=== PATIENT | male | born 1995 | race Caucasian/White ===

== ENCOUNTER 2017-11-04 11:10 | Emergency (ER) | payer OTHER ==
[~2017-11-04] VITALS: Ht 182.9 cm; Wt 106.6 kg
[~2017-11-04 11:10] MED LIST: ACET325; ACYC800 PO; CEPH500 PO; CODACE30 PO; CODACEE120 PO; HYDACE5 PO; HYDACE5325 PO; IBUP800 PO; Norco 5-325 Ta1 EACH PO; OXYACE5T PO; TRAM50 PO; Ultram50 MG PO; Veetids 500500 MG PO
[2017-11-04] MEDS ORDERED: Crutch1 EACH MISC (13:05)
[2018-07-13] MEDS ORDERED: IBUP800 PO (12:44)
[2018-07-13] MEDS ORDERED: [UNRECOGNIZED DRUG - SUPPLY] TOP (12:44)
== END 2017-11-04 13:32 | disposition home or self-care (01) ==
LOC: ER 11:10
DX: S92.212A Displaced fracture of cuboid bone of left foot, initial encounter for closed fracture (principal); F17.200 Nicotine dependence, unspecified, uncomplicated; W22.8XXA Striking against or struck by other objects, initial encounter
CPT/HCPCS: 29515; 73630; 99283

== ENCOUNTER 2017-12-14 23:57 | Emergency (ER) | payer OTHER ==
[~2017-12-14] VITALS: Ht 185.4 cm; Wt 111.1 kg
[~2017-12-14 23:57] MED LIST changes: +Crutch1 EACH MISC
[2018-07-13] MEDS ORDERED: IBUP800 PO (12:44)
[2018-07-13] MEDS ORDERED: [UNRECOGNIZED DRUG - SUPPLY] TOP (12:44)
== END 2017-12-15 02:51 | disposition home or self-care (01) ==
LOC: ER 23:57
DX: S61.302A Unspecified open wound of right middle finger with damage to nail, initial encounter (principal); F17.200 Nicotine dependence, unspecified, uncomplicated; W23.0XXA Caught, crushed, jammed, or pinched between moving objects, initial encounter
CPT/HCPCS: 73130; 96374; 99283; J0690

== ENCOUNTER 2019-08-04 19:53 | Emergency (ER) | payer OTHER ==
[~2019-08-04] VITALS: Ht 182.9 cm; Wt 106.6 kg
[~2019-08-04 19:53] MED LIST changes: +[UNRECOGNIZED DRUG - SUPPLY] TOP
[2019-08-04] MEDS ORDERED: Colace100 MG PO (20:28)
[2019-08-04] MEDS ORDERED: HYDCOR2.5C PR (20:28)
== END 2019-08-04 21:03 | disposition home or self-care (01) ==
LOC: ER 19:53
DX: K64.4 Residual hemorrhoidal skin tags (principal); F17.200 Nicotine dependence, unspecified, uncomplicated
CPT/HCPCS: 99282

== ENCOUNTER 2019-08-07 09:04 | Emergency (ER) | payer OTHER ==
[~2019-08-07] VITALS: Ht 190.5 cm; Wt 104.8 kg
[~2019-08-07 09:04] MED LIST changes: -HYDR1TAB94 PO
[2019-08-07 10:35] LABS: BASOPHILS ABSOLUTE AUTO 0.05 K/mm3 (0.00-0.23); BASOPHILS PERCENT AUTO 1 % (0-2); EOSINOPHILS ABSOLUTE AUTO 0.03 K/mm3 (0.00-0.68); EOSINOPHILS PERCENT AUTO 0 % (0-6); Hematocrit 38.5 % (37.0-53.0); Hemoglobin 13.5 g/dL (13.5-17.5); IMMATURE GRAN ABSOLUTE AUTO 0.03 K/mm3 (0.00-0.10); IMMATURE GRAN PERCENT AUTO 0 % (0-1); LYMPHOCYTES ABSOLUTE AUTO 3.85 K/mm3 (0.84-5.20); LYMPHOCYTES PERCENT AUTO 38 % (21-46); MONOCYTES ABSOLUTE AUTO 0.88 K/mm3 (0.16-1.47); MONOCYTES PERCENT AUTO 9 % (4-13); Mean Corpuscular HGB 32.5 pg (26.0-34.0); Mean Corpuscular HGB Conc 35.1 g/dL (31.5-36.5); Mean Corpuscular Volume 93 fL (80-100); NEUTROPHILS ABSOLUTE AUTO 5.18 K/mm3 (1.96-9.15); NEUTROPHILS PERCENT AUTO 52 % (41-73); Platelet Count 193 K/mm3 (150-400); RDW Standard Deviation 44.1 fL (35.1-46.3); Red Blood Cell Count 4.16 M/mm3 (4.30-5.90); White Blood Cell Count 10.02 K/mm3 (4.00-11.30)
[2019-08-07 10:47] LABS: Anion Gap 3 mmol/L (6-16); Blood Urea Nitrogen 12 mg/dL (8-24); Bun/Creatinine Ratio 14.9 (12.0-20.0); CO2, Blood 28 mmol/L (21-32); Calcium, Blood 9.5 mg/dL (8.5-10.1); Chloride, Blood 104 mmol/L (98-108); Creatinine, Blood 0.81 mg/dL (0.60-1.20); Glomerular Filtration Rate >60 (60-); Glucose, Blood 107 mg/dL (70-99); Potassium, Blood 3.9 mmol/L (3.5-5.5); Sodium, Blood 135 mmol/L (136-145)
[2019-08-07] MEDS ORDERED: HYDR1TAB94 PO (11:15)
== END 2019-08-07 11:31 | disposition home or self-care (01) ==
LOC: ER 09:04
PROVIDERS: Emergency Medicine
DX: K61.0 Anal abscess (principal); F17.200 Nicotine dependence, unspecified, uncomplicated
CPT/HCPCS: 36415; 72193; 80048; 85025; 90471; 90714; 99284-25; Q9967

== ENCOUNTER → 2019-08-07 | Outpatient (CLI) | payer OTHER ==
[~2019-08-07] MED LIST changes: +Colace100 MG PO; +HYDCOR2.5C PR; +HYDR1TAB94 PO
== END ==
LOC: LAB EV 08:49 → LAB SHORT 08:49
DX: K61.1 Rectal abscess (principal)
CPT/HCPCS: 87070; 87075; 87147; 87205

== ENCOUNTER → 2021-12-17 | Outpatient (CLI) | payer OTHER ==
[~2021-12-17] MED LIST changes: +HYDR1TAB94 PO
== END ==
LOC: LAB SHORT 18:07
DX: R30.9 Painful micturition, unspecified (principal)
CPT/HCPCS: 87086

== ENCOUNTER → 2021-12-22 | Outpatient (CLI) | payer OTHER ==
[2021-12-24 08:10] LABS: HBSAG SCREEN Negative (Negative); HIV AB/P24 AG SCREEN Non Reactive (Non Reactive)
== END ==
LOC: LAB 16:35 → LAB SHORT 16:35
PROVIDERS: Registered Nurse Community Health
DX: Z11.3 Encounter for screening for infections with a predominantly sexual mode of transmission (principal)
CPT/HCPCS: 86592; 86803; 87340; 87389

== ENCOUNTER → 2021-12-22 | Outpatient (CLI) | payer OTHER ==
[2021-12-24 21:06] LABS: CHLAMYDIA BY NAA Negative (Negative); GONOCOCCUS BY NAA Negative (Negative); TRICH VAG BY NAA Negative (Negative)
== END ==
LOC: LAB SHORT 16:35 → LAB 16:35
PROVIDERS: Registered Nurse Community Health
DX: Z11.3 Encounter for screening for infections with a predominantly sexual mode of transmission (principal); R30.9 Painful micturition, unspecified
CPT/HCPCS: 87086; 87491; 87591; 87661

== ENCOUNTER → 2022-01-02 | Outpatient (CLI) | payer OTHER | END | disposition home or self-care (01) | LOC: LAB SHORT 11:29 → LAB 11:29 | DX: R31.9 Hematuria, unspecified (principal) | CPT/HCPCS: 87077; 87086; 87186 ==

== ENCOUNTER → 2022-02-04 | Outpatient (CLI) | payer OTHER | END | disposition home or self-care (01) | LOC: LAB SHORT 17:03 → LAB 17:03 | DX: H11.9 Unspecified disorder of conjunctiva (principal) | CPT/HCPCS: 87491 ==

== ENCOUNTER → 2022-02-08 | Outpatient (CLI) | payer OTHER ==
[2022-02-08 13:06] LABS: Body Fluid Crystals NEG (NEGATIVE)
== END | disposition home or self-care (01) ==
LOC: LAB 11:35 → LAB SHORT 11:35
PROVIDERS: Family Medicine
DX: M25.461 Effusion, right knee (principal); M10.9 Gout, unspecified
CPT/HCPCS: 89060

== ENCOUNTER → 2022-04-10 | Outpatient (CLI) | payer OTHER ==
[2022-04-10 13:56] LABS: BASOPHILS ABSOLUTE AUTO 0.05 K/mm3 (0.00-0.23); BASOPHILS PERCENT AUTO 1 % (0-2); EOSINOPHILS ABSOLUTE AUTO 0.03 K/mm3 (0.00-0.68); EOSINOPHILS PERCENT AUTO 0 % (0-6); Hematocrit 41.7 % (37.0-53.0); Hemoglobin 13.7 g/dL (13.5-17.5); IMMATURE GRAN ABSOLUTE AUTO 0.08 K/mm3 (0.00-0.10); IMMATURE GRAN PERCENT AUTO 1 % (0-1); LYMPHOCYTES ABSOLUTE AUTO 1.03 K/mm3 (0.84-5.20); LYMPHOCYTES PERCENT AUTO 11 % (21-46); MONOCYTES ABSOLUTE AUTO 0.83 K/mm3 (0.16-1.47); MONOCYTES PERCENT AUTO 9 % (4-13); Mean Corpuscular HGB Conc 32.9 g/dL (31.5-36.5); Mean Corpuscular Volume 88 fL (80-100); Mean Platelet Volume 9.8 fL (9.1-12.4); NEUTROPHILS ABSOLUTE AUTO 7.59 K/mm3 (1.96-9.15); NEUTROPHILS PERCENT AUTO 79 % (41-73); Platelet Count 294 K/mm3 (150-400); RDW Standard Deviation 45.1 fL (35.1-46.3); Red Blood Cell Count 4.73 M/mm3 (4.30-5.90); White Blood Cell Count 9.61 K/mm3 (4.00-11.30)
[2022-04-10 14:05] LABS: Albumin, Blood 3.6 g/dL (3.4-5.0); Bilirubin, Total 0.6 mg/dL (0.1-1.0); Calcium, Blood 9.5 mg/dL (8.5-10.1); Creatinine, Blood 0.57 mg/dL (0.60-1.20); Globulin, Blood 3.6 g/dL (2.2-4.0); Total Protein, Blood 7.2 g/dL (6.4-8.2)
[2022-04-10 19:54] LABS: Adenovirus F 40/41 Not Detected (NOT DETECT); Astrovirus Not Detected (NOT DETECT); Campylobacter Sp Not Detected (NOT DETECT); Cryptosporidium Not Detected (NOT DETECT); Cyclospora Cayetanensis Not Detected (NOT DETECT); E. Coli O157 Not Detected (NOT DETECT); Entamoeba Histolytica Not Detected (NOT DETECT); Enteroaggregative E. coli-EAEC Not Detected (NOT DETECT); Enteropathogenic E. coli-EPEC Not Detected (NOT DETECT); Enterotoxigenic E. coli-ETEC Not Detected (NOT DETECT); Giardia Lamblia Not Detected (NOT DETECT); Norovirus GI/GII Not Detected (NOT DETECT); Plesiomonas Shigelloides Detected (NOT DETECT); Rotavirus A Not Detected (NOT DETECT); Salmonella Sp Not Detected (NOT DETECT); Sapovirus Not Detected (NOT DETECT); Shiga Toxin-prod E. coli-STEC Not Detected (NOT DETECT); Shigella/Enteroin E. coli-EIEC Not Detected (NOT DETECT); Vibrio Cholerae Not Detected (NOT DETECT); Vibrio Sp Not Detected (NOT DETECT); Yersinia Enterocolitica Not Detected (NOT DETECT)
[2022-04-12 09:11] LABS: HBSAG SCREEN Negative (Negative); HCV AB 0.2 (0.0-0.9); HEP B CORE AB, TOT Negative (Negative)
== END | disposition home or self-care (01) ==
LOC: LAB SHORT 13:38 → LAB 13:38
PROVIDERS: General Practice
DX: R19.7 Diarrhea, unspecified (principal)
CPT/HCPCS: 80053; 85025; 85651; 86140; 86704; 86708; 86803; 87340; 87507

== ENCOUNTER → 2022-04-29 | Outpatient (CLI) | payer OTHER ==
[2022-04-29 10:55] LABS: Adenovirus F 40/41 Not Detected (NOT DETECT); Astrovirus Not Detected (NOT DETECT); Campylobacter Sp Not Detected (NOT DETECT); Cryptosporidium Not Detected (NOT DETECT); Cyclospora Cayetanensis Not Detected (NOT DETECT); E. Coli O157 Not Detected (NOT DETECT); Entamoeba Histolytica Not Detected (NOT DETECT); Enteroaggregative E. coli-EAEC Not Detected (NOT DETECT); Enteropathogenic E. coli-EPEC Not Detected (NOT DETECT); Enterotoxigenic E. coli-ETEC Not Detected (NOT DETECT); Giardia Lamblia Not Detected (NOT DETECT); Norovirus GI/GII Not Detected (NOT DETECT); Plesiomonas Shigelloides Not Detected (NOT DETECT); Rotavirus A Not Detected (NOT DETECT); Salmonella Sp Not Detected (NOT DETECT); Sapovirus Not Detected (NOT DETECT); Shiga Toxin-prod E. coli-STEC Not Detected (NOT DETECT); Shigella/Enteroin E. coli-EIEC Not Detected (NOT DETECT); Vibrio Cholerae Not Detected (NOT DETECT); Vibrio Sp Not Detected (NOT DETECT); Yersinia Enterocolitica Not Detected (NOT DETECT)
== END | disposition home or self-care (01) ==
LOC: LAB SHORT 03:54 → LAB 03:54
PROVIDERS: Physician Assistant
DX: R19.7 Diarrhea, unspecified (principal)
CPT/HCPCS: 87507

== ENCOUNTER 2022-05-06 09:43 | Day surgery (SDC) | payer OTHER ==
[~2022-05-06] VITALS: Ht 185.4 cm; Wt 104.1 kg
[2022-05-06] MEDS ORDERED: BUDESONIDE EC3 M1 (10:40)
[2022-05-06] MEDS ORDERED: SULF500 (10:40)
[2022-05-06] MEDS ORDERED: SULI150 (10:41)
[2022-05-06] MEDS ORDERED: ZINC15 (10:41)
[2022-05-06] MEDS ORDERED: C COMPLEX1000 M1 (10:41)
--- NOTE | 2022-05-06 12:05 | NUR ---
05/06/22 1205 KAMRON ESTES PT GIVEN PROPOFOL SEDATION PER PROTOCOL AND MD INSTRUCTION BUT FAILD TO SEDATE PT./UNSUCCESSFUL RECTAL EXAM DUE TO PT TRYING TO SIT UP AND RESIST. BP DROPPED 92/38 MAP 53- MD ORDERED EPHEDRINE 12.5MG. INCREASED BP 90/49 (62) / VERSED 1MG GIVEN IV 1133 IN ATTEMPT TO PROCEED WITH PROCEDURE. BP 93/45 MD ORDERED SECOND EPHEDRINE 12.5 MG IV; BP 96/47 (61) MAP. ANETHESIOLOGIST CALLED 1130 WILL BE HERE IN 20 MINUTES.
--- NOTE | 2022-05-06 12:15 | NUR ---
05/06/[address] CALLED IN TO SEDATE PT ORIGINALLY SCHEDULED FOR NURSE SEDATION W/O SUCCESS
== END 2022-05-06 13:30 | disposition home or self-care (01) ==
LOC: ORSCSDS 09:43
PROVIDERS: Internal Medicine Gastroenterology
PROC: 0DBN8ZX Excision of Sigmoid Colon, Via Natural or Artificial Opening Endoscopic, Diagnostic (ICD-10-PCS; principal; 2022-05-06 11:00)
PROC: 0DBF8ZX Excision of Right Large Intestine, Via Natural or Artificial Opening Endoscopic, Diagnostic (ICD-10-PCS; principal; 2022-05-06 11:00)
PROC: 0DBB8ZX Excision of Ileum, Via Natural or Artificial Opening Endoscopic, Diagnostic (ICD-10-PCS; principal; 2022-05-06 11:00)
PROC: 0DBL8ZX Excision of Transverse Colon, Via Natural or Artificial Opening Endoscopic, Diagnostic (ICD-10-PCS; principal; 2022-05-06 11:00)
PROC: 0DBP8ZX Excision of Rectum, Via Natural or Artificial Opening Endoscopic, Diagnostic (ICD-10-PCS; principal; 2022-05-06 11:00)
PROC: 0DBM8ZX Excision of Descending Colon, Via Natural or Artificial Opening Endoscopic, Diagnostic (ICD-10-PCS; principal; 2022-05-06 11:00)
DX: K62.5 Hemorrhage of anus and rectum (principal); R19.7 Diarrhea, unspecified; K57.30 Diverticulosis of large intestine without perforation or abscess without bleeding; K63.89 Other specified diseases of intestine; M02.30 Reiter's disease, unspecified site; K21.9 Gastro-esophageal reflux disease without esophagitis; E66.9 Obesity, unspecified; Z68.31 Body mass index [BMI] 31.0-31.9, adult; Z79.899 Other long term (current) drug therapy
CPT/HCPCS: 88305; J0330; J0461; J2250; J2370; J2405; J2704; J7120

== ENCOUNTER 2022-09-22 00:45 | Day surgery (SDC) | payer OTHER ==
[~2022-09-22] VITALS: Wt 107.0 kg
[~2022-09-22 00:45] MED LIST changes: +BUDESONIDE EC3 M1; +C COMPLEX1000 M1; +GALZIN25 MG PO; +SULF500; +SULI150
[2022-09-22] MEDS ORDERED: MESA250ER PO (14:02)
[2022-09-22] MEDS ORDERED: DERMACINRX FOL1 EAC2 PO (14:03)
[2022-09-22] MEDS ORDERED: IBUP400 PO (14:03)
[2022-09-22] MEDS ORDERED: Acetaminophen650 M1 PO (14:04)
== END 2022-09-22 16:32 | disposition home or self-care (01) ==
LOC: ATC 00:45
DX: M45.0 Ankylosing spondylitis of multiple sites in spine (principal); K51.90 Ulcerative colitis, unspecified, without complications
CPT/HCPCS: 96413; 96415; J7050; Q5103

== ENCOUNTER 2022-10-06 03:35 | Day surgery (SDC) | payer OTHER ==
[~2022-10-06] VITALS: Wt 106.8 kg
[~2022-10-06 03:35] MED LIST changes: +Acetaminophen650 M1 PO; +DERMACINRX FOL1 EAC2 PO; +IBUP400 PO; +MESA250ER PO
== END 2022-10-06 16:28 | disposition home or self-care (01) ==
LOC: ATC 03:35
DX: M45.9 Ankylosing spondylitis of unspecified sites in spine (principal); K51.90 Ulcerative colitis, unspecified, without complications
CPT/HCPCS: 96413; 96415; J7050; Q5103

== ENCOUNTER 2022-11-03 01:19 | Day surgery (SDC) | payer OTHER ==
[~2022-11-03] VITALS: Wt 107.5 kg
== END 2022-11-03 16:45 | disposition home or self-care (01) ==
LOC: ATC 01:19
DX: M45.0 Ankylosing spondylitis of multiple sites in spine (principal)
CPT/HCPCS: 96413; 96415; J7050; Q5103

== ENCOUNTER → 2022-12-24 | Outpatient (CLI) | payer OTHER ==
[2022-12-24 16:04] LABS: Source, Urine Clean Catch
[2022-12-24 16:36] LABS: Red Blood Cells, Urine 0-2 /hpf (0-2); White Blood Cells, Urine 25-50 /hpf (0-5)
[2022-12-24 16:38] LABS: Amorphous Heavy (0-Heavy); Squamous Epithelial Cells Rare /hpf (Few)
[2022-12-24 16:49] LABS: Mucus Mod (0-Heavy); Transitional Epithelial Cells Rare /hpf (0-Rare)
[2022-12-24 16:50] LABS: Hyaline Casts 0-2 /lpf (0-2)
== END | disposition home or self-care (01) ==
LOC: LAB SHORT 16:02 → LAB 16:02
PROVIDERS: Physician Assistant
DX: R31.9 Hematuria, unspecified (principal)
CPT/HCPCS: 81015; 87086

== ENCOUNTER → 2023-04-24 | Outpatient (CLI) | payer OTHER ==
[2023-04-24 13:52] LABS: Source, Urine Voided
[2023-04-24 15:42] LABS: Appearance, Urine Clear (Clear); Bilirubin, Urine Neg (Neg); Blood, Urine 2+ (Neg); Color, Urine Yellow (P-Yellow); Glucose Qualitative, Urine Neg (Neg); Ketones, Urine Neg (Neg); Leukocyte Esterase, Urine Neg (Neg); Nitrite, Urine Neg (Neg); Protein, Urine Neg (Neg); Specific Gravity, Urine 1.015 (1.003-1.022); Urobilinogen, Urine NORM (Normal)
[2023-04-24 15:56] LABS: Bacteria Mod /hpf; Red Blood Cells, Urine 0-2 /hpf (0-2); Squamous Epithelial Cells Rare /hpf (Few); White Blood Cells, Urine 0-2 /hpf (0-5)
== END | disposition home or self-care (01) ==
LOC: LAB SHORT 13:51 → LAB 13:51 → LAB FUT 03-22 07:55 → EDSTATUS 03-22 07:55
PROVIDERS: Internal Medicine Rheumatology
DX: M45.0 Ankylosing spondylitis of multiple sites in spine (principal)
CPT/HCPCS: 81001; 87086

== ENCOUNTER 2023-12-19 01:57 | Day surgery (SDC) | payer OTHER ==
[2023-12-19 14:04] VITALS: BP 121/79
[2023-12-19] MEDS ORDERED: NS IV SCH (14:20)
[2023-12-19] MEDS ORDERED: INFLIXIMAB DYYB IV SCH (14:20)
== END 2023-12-19 17:13 | disposition home or self-care (01) ==
LOC: ATC 01:57
DX: M45.0 Ankylosing spondylitis of multiple sites in spine (principal); H10.9 Unspecified conjunctivitis
CPT/HCPCS: 96413; 96415; J7040; Q5103

== ENCOUNTER → 2024-03-11 | Outpatient (CLI) | payer OTHER | END | disposition home or self-care (01) | LOC: LAB 15:30 → LAB SHORT 15:30 → EDSTATUS 03-13 09:49 | DX: K51.00 Ulcerative (chronic) pancolitis without complications (principal); M13.80 Other specified arthritis, unspecified site ==

== ENCOUNTER 2024-05-13 02:26 | Day surgery (SDC) | payer OTHER ==
[2024-05-13 13:50] VITALS: BP 118/83
[2024-05-13] MEDS ORDERED: Infliximab-DYYB 1,000 MG in NS 250 ML IV SCH (13:50)
[2024-05-13] MEDS ORDERED: INFLECTRA100 MG IV (13:53)
== END 2024-05-13 16:26 | disposition home or self-care (01) ==
LOC: ATC 02:26
DX: Z51.11 Encounter for antineoplastic chemotherapy (principal); M45.0 Ankylosing spondylitis of multiple sites in spine; K51.90 Ulcerative colitis, unspecified, without complications; H10.9 Unspecified conjunctivitis
CPT/HCPCS: 96413; 96415; J7050; Q5103

== ENCOUNTER 2024-07-02 01:57 | Day surgery (SDC) | payer OTHER ==
[~2024-07-02 01:57] MED LIST changes: +INFLECTRA100 MG IV
[2024-07-02 15:28] VITALS: BP 133/87
[2024-07-02] MEDS ORDERED: NS IV SCH ×2 (15:40→15:45)
[2024-07-02] MEDS ORDERED: INFLIXIMAB DYYB IV SCH ×2 (15:40→15:45)
[2024-07-02 17:26] LABS: BASOPHILS ABSOLUTE AUTO 0.06 K/mm3 (0.00-0.23); BASOPHILS PERCENT AUTO 1 % (0-2); EOSINOPHILS ABSOLUTE AUTO 0.06 K/mm3 (0.00-0.68); EOSINOPHILS PERCENT AUTO 1 % (0-6); Hematocrit 40.1 % (37.0-53.0); Hemoglobin 14.5 g/dL (13.5-17.5); IMMATURE GRAN ABSOLUTE AUTO 0.01 K/mm3 (0.00-0.10); IMMATURE GRAN PERCENT AUTO 0 % (0-1); LYMPHOCYTES ABSOLUTE AUTO 2.77 K/mm3 (0.84-5.20); LYMPHOCYTES PERCENT AUTO 33 % (21-46); MONOCYTES ABSOLUTE AUTO 0.74 K/mm3 (0.16-1.47); MONOCYTES PERCENT AUTO 9 % (4-13); Mean Corpuscular HGB 31.7 pg (26.0-34.0); Mean Corpuscular HGB Conc 36.2 g/dL (31.5-36.5); Mean Corpuscular Volume 88 fL (80-100); Mean Platelet Volume 10.9 fL (9.1-12.4); NEUTROPHILS ABSOLUTE AUTO 4.87 K/mm3 (1.96-9.15); NEUTROPHILS PERCENT AUTO 57 % (41-73); Platelet Count 238 K/mm3 (150-400); RDW Coefficient Variation 12.3 % (11.7-14.2); RDW Standard Deviation 39.1 fL (35.1-46.3); Red Blood Cell Count 4.57 M/mm3 (4.30-5.90); White Blood Cell Count 8.51 K/mm3 (4.00-11.30)
[2024-07-02 17:35] LABS: C-REACTIVE PROTEIN, EXT RANGE <0.290 mg/dL (0.000-0.300)
[2024-07-02 17:38] LABS: Alanine Aminotransfer (ALT/SGP 70 U/L (12-78); Albumin, Blood 4.3 g/dL (3.4-5.0); Albumin/Globulin Ratio 1.2 (0.8-1.8); Alk Phos 79 U/L (50-136); Anion Gap 7 mmol/L (3-11); Aspartate Aminotrans (AST/SGOT 29 U/L (12-37); Bilirubin, Total 0.4 mg/dL (0.1-1.0); Blood Urea Nitrogen 15 mg/dL (8-24); Bun/Creatinine Ratio 18.6 (12.0-20.0); CO2, Blood 28 mmol/L (21-32); Calcium, Blood 9.5 mg/dL (8.5-10.1); Chloride, Blood 106 mmol/L (98-108); Creatinine, Blood 0.81 mg/dL (0.60-1.20); Globulin, Blood 3.7 g/dL (2.2-4.0); Glomerular Filtration Rate 122 (60-); Glucose, Blood 81 mg/dL (70-99); Potassium, Blood 3.7 mmol/L (3.5-5.5); Sodium, Blood 137 mmol/L (136-145)
== END 2024-07-02 18:35 | disposition home or self-care (01) ==
LOC: ATC 01:57
PROVIDERS: Internal Medicine
DX: M06.09 Rheumatoid arthritis without rheumatoid factor, multiple sites (principal); K51.80 Other ulcerative colitis without complications; E66.8 Other obesity; Z68.32 Body mass index [BMI] 32.0-32.9, adult; Z87.891 Personal history of nicotine dependence; Z79.899 Other long term (current) drug therapy
CPT/HCPCS: 80053; 85025; 86140; 96413; 96415; J7040; Q5103

== ENCOUNTER 2024-08-13 03:34 | Day surgery (SDC) | payer OTHER ==
[~2024-08-13] VITALS: Wt 111.1 kg
[2024-08-13 15:25] VITALS: BP 132/82
[2024-08-13] MEDS ORDERED: INFLIXIMAB DYYB IV SCH (15:35)
[2024-08-13] MEDS ORDERED: NS IV SCH (15:35)
== END 2024-08-13 18:24 | disposition home or self-care (01) ==
LOC: ATC 03:34
DX: M06.09 Rheumatoid arthritis without rheumatoid factor, multiple sites (principal); E66.9 Obesity, unspecified; Z68.32 Body mass index [BMI] 32.0-32.9, adult; Z87.891 Personal history of nicotine dependence
CPT/HCPCS: 96413; 96415; J7040; Q5103

== ENCOUNTER 2024-09-30 11:41 | Day surgery (SDC) | payer OTHER ==
[~2024-09-30] VITALS: Ht 188 cm; Wt 107.0 kg
[2024-09-30] MEDS ORDERED: CeFAZolin Sodium 2,000 MG VIAL ONE (12:13)
[2024-09-30] MEDS ORDERED: NS 500 ML IV ONE ×3 (12:17→14:26)
[2024-09-30] MEDS ORDERED: FentaNYL Citrate 50 MCG/ML 2 ML Injection ONE (13:43)
[2024-09-30] MEDS ORDERED: Midazolam HCl 1MG / ML 2ML Vial ONE (13:43)
[2024-09-30] MEDS ORDERED: propofoL 60 ML IV ONE (13:43)
[2024-09-30] MEDS ORDERED: HYDROmorphone HCl/Pf 1MG SYR ONE (14:02)
[2024-09-30] MEDS ORDERED: Dexamethasone Sod Phos 10 MG/ML 1ML VIAL ONE (14:03)
[2024-09-30] MEDS ORDERED: Ondansetron HCl 2 MG / ML 2ML Vial ONE ×2 (14:03→14:44)
[2024-09-30] MEDS ORDERED: Lidocaine HCl 2% 10 ML SDA INJ ONE ×2 (14:13)
[2024-09-30] MEDS ORDERED: Metoclopramide HCl 5MG / ML 2ML Vial ONE (15:00)
[2024-09-30 15:12] VITALS: BP 135/84
== END 2024-09-30 15:37 | disposition home or self-care (01) ==
LOC: ORSCSDS 11:41
PROVIDERS: Orthopaedic Surgery
PROC: 0PSM34Z Reposition Right Carpal with Internal Fixation Device, Percutaneous Approach (ICD-10-PCS; principal; 2024-09-30 13:15)
DX: S62.014A Nondisplaced fracture of distal pole of navicular [scaphoid] bone of right wrist, initial encounter for closed fracture (principal); V86.59XA Driver of other special all-terrain or other off-road motor vehicle injured in nontraffic accident, initial encounter; Z87.891 Personal history of nicotine dependence; Z79.899 Other long term (current) drug therapy; E66.9 Obesity, unspecified; Z68.30 Body mass index [BMI] 30.0-30.9, adult
CPT/HCPCS: C1713; C1769; J0690; J1100; J1171; J2003; J2250; J2405; J2704; J2765; J3010; J7040

== ENCOUNTER 2024-10-09 03:47 | Day surgery (SDC) | payer OTHER ==
[~2024-10-09] VITALS: Wt 109.4 kg
[2024-10-09 13:45] VITALS: BP 125/67
[2024-10-09] MEDS ORDERED: NS IV SCH (14:00)
[2024-10-09] MEDS ORDERED: INFLIXIMAB DYYB IV SCH (14:00)
[2024-10-09 14:31] LABS: BASOPHILS ABSOLUTE AUTO 0.05 K/mm3 (0.00-0.23); BASOPHILS PERCENT AUTO 1 % (0-2); EOSINOPHILS ABSOLUTE AUTO 0.06 K/mm3 (0.00-0.68); EOSINOPHILS PERCENT AUTO 1 % (0-6); Hematocrit 41.3 % (37.0-53.0); Hemoglobin 15.4 g/dL (13.5-17.5); IMMATURE GRAN ABSOLUTE AUTO 0.03 K/mm3 (0.00-0.10); IMMATURE GRAN PERCENT AUTO 0 % (0-1); LYMPHOCYTES ABSOLUTE AUTO 2.35 K/mm3 (0.84-5.20); LYMPHOCYTES PERCENT AUTO 32 % (21-46); MONOCYTES ABSOLUTE AUTO 0.68 K/mm3 (0.16-1.47); MONOCYTES PERCENT AUTO 9 % (4-13); Mean Corpuscular HGB 32.2 pg (26.0-34.0); Mean Corpuscular HGB Conc 37.3 g/dL (31.5-36.5); Mean Corpuscular Volume 86 fL (80-100); NEUTROPHILS ABSOLUTE AUTO 4.19 K/mm3 (1.96-9.15); NEUTROPHILS PERCENT AUTO 57 % (41-73); Platelet Count 237 K/mm3 (150-400); RDW Coefficient Variation 12.2 % (11.7-14.2); RDW Standard Deviation 38.5 fL (35.1-46.3); Red Blood Cell Count 4.79 M/mm3 (4.30-5.90); White Blood Cell Count 7.36 K/mm3 (4.00-11.30)
[2024-10-09 14:56] LABS: Alanine Aminotransfer (ALT/SGP 66 U/L (12-78); Albumin, Blood 4.3 g/dL (3.4-5.0); Albumin/Globulin Ratio 1.2 (0.8-1.8); Alk Phos 77 U/L (50-136); Anion Gap 11 mmol/L (3-11); Aspartate Aminotrans (AST/SGOT 22 U/L (12-37); Bilirubin, Total 0.6 mg/dL (0.1-1.0); Blood Urea Nitrogen 16 mg/dL (8-24); Bun/Creatinine Ratio 20.6 (12.0-20.0); C-REACTIVE PROTEIN, EXT RANGE <0.290 mg/dL (0.000-0.300); CO2, Blood 27 mmol/L (21-32); Calcium, Blood 9.6 mg/dL (8.5-10.1); Chloride, Blood 106 mmol/L (98-108); Creatinine, Blood 0.78 mg/dL (0.60-1.20); Globulin, Blood 3.6 g/dL (2.2-4.0); Glomerular Filtration Rate 123 (60-); Glucose, Blood 101 mg/dL (70-99); Potassium, Blood 3.8 mmol/L (3.5-5.5); Sodium, Blood 140 mmol/L (136-145); Total Protein, Blood 7.9 g/dL (6.4-8.2)
== END 2024-10-09 16:54 | disposition home or self-care (01) ==
LOC: ATC 03:47
PROVIDERS: Internal Medicine
DX: M06.09 Rheumatoid arthritis without rheumatoid factor, multiple sites (principal); K51.80 Other ulcerative colitis without complications; E66.9 Obesity, unspecified; Z79.899 Other long term (current) drug therapy; Z68.32 Body mass index [BMI] 32.0-32.9, adult; Z87.891 Personal history of nicotine dependence
CPT/HCPCS: 80053; 85025; 86140; 96413; 96415; J7040; Q5103

== ENCOUNTER 2024-11-20 01:00 | Day surgery (SDC) | payer OTHER ==
[~2024-11-20 01:00] MED LIST changes: +INFLIXIMAB DYYB IV SCH; +NS IV SCH
[2024-11-20 15:30] VITALS: BP 132/85
[2024-11-20] MEDS ORDERED: NS IV SCH (15:35)
[2024-11-20] MEDS ORDERED: INFLIXIMAB DYYB IV SCH (15:35)
== END 2024-11-20 18:04 | disposition home or self-care (01) ==
LOC: ATC 01:00
DX: M06.09 Rheumatoid arthritis without rheumatoid factor, multiple sites (principal); K51.80 Other ulcerative colitis without complications; E66.9 Obesity, unspecified; Z68.32 Body mass index [BMI] 32.0-32.9, adult; Z87.891 Personal history of nicotine dependence; Z79.899 Other long term (current) drug therapy
CPT/HCPCS: 96413; 96415; J7040; Q5103

== ENCOUNTER → 2024-12-08 | Outpatient (CLI) | payer OTHER ==
[~2024-12-08] MED LIST changes: -INFLIXIMAB DYYB IV SCH; -NS IV SCH
[2024-12-08 10:21] LABS: BASOPHILS ABSOLUTE AUTO 0.04 K/mm3 (0.00-0.23); BASOPHILS PERCENT AUTO 0 % (0-2); EOSINOPHILS ABSOLUTE AUTO 0.03 K/mm3 (0.00-0.68); EOSINOPHILS PERCENT AUTO 0 % (0-6); Hematocrit 39.7 % (37.0-53.0); Hemoglobin 14.2 g/dL (13.5-17.5); IMMATURE GRAN ABSOLUTE AUTO 0.03 K/mm3 (0.00-0.10); IMMATURE GRAN PERCENT AUTO 0 % (0-1); LYMPHOCYTES ABSOLUTE AUTO 2.27 K/mm3 (0.84-5.20); LYMPHOCYTES PERCENT AUTO 20 % (21-46); MONOCYTES ABSOLUTE AUTO 1.09 K/mm3 (0.16-1.47); MONOCYTES PERCENT AUTO 10 % (4-13); Mean Corpuscular HGB 31.8 pg (26.0-34.0); Mean Corpuscular HGB Conc 35.8 g/dL (31.5-36.5); Mean Corpuscular Volume 89 fL (80-100); Mean Platelet Volume 10.5 fL (9.1-12.4); NEUTROPHILS ABSOLUTE AUTO 7.93 K/mm3 (1.96-9.15); NEUTROPHILS PERCENT AUTO 70 % (41-73); Platelet Count 198 K/mm3 (150-400); RDW Coefficient Variation 12.2 % (11.7-14.2); RDW Standard Deviation 39.5 fL (35.1-46.3); Red Blood Cell Count 4.47 M/mm3 (4.30-5.90); White Blood Cell Count 11.39 K/mm3 (4.00-11.30)
[2024-12-08 10:25] LABS: Bun/Creatinine Ratio 15.5 (12.0-20.0); Calcium, Blood 9.7 mg/dL (8.5-10.1); Creatinine, Blood 0.84 mg/dL (0.60-1.20)
== END | disposition home or self-care (01) ==
LOC: LAB SHORT 10:16 → LAB 10:16
PROVIDERS: Physician Assistant Medical
DX: R10.2 Pelvic and perineal pain (principal)
CPT/HCPCS: 80048; 85025

== ENCOUNTER 2024-12-31 00:10 | Day surgery (SDC) | payer OTHER ==
[2024-12-31] MEDS ORDERED: NS IV SCH (15:25)
[2024-12-31] MEDS ORDERED: INFLIXIMAB DYYB IV SCH (15:25)
[2024-12-31 16:04] VITALS: BP 123/68
[2024-12-31 16:59] LABS: BASOPHILS ABSOLUTE AUTO 0.05 K/mm3 (0.00-0.23); BASOPHILS PERCENT AUTO 1 % (0-2); EOSINOPHILS ABSOLUTE AUTO 0.05 K/mm3 (0.00-0.68); EOSINOPHILS PERCENT AUTO 1 % (0-6); Hemoglobin 14.6 g/dL (13.5-17.5); IMMATURE GRAN ABSOLUTE AUTO 0.02 K/mm3 (0.00-0.10); IMMATURE GRAN PERCENT AUTO 0 % (0-1); LYMPHOCYTES ABSOLUTE AUTO 2.79 K/mm3 (0.84-5.20); LYMPHOCYTES PERCENT AUTO 33 % (21-46); MONOCYTES ABSOLUTE AUTO 0.64 K/mm3 (0.16-1.47); MONOCYTES PERCENT AUTO 8 % (4-13); Mean Corpuscular HGB 32.7 pg (26.0-34.0); Mean Corpuscular HGB Conc 37.4 g/dL (31.5-36.5); Mean Corpuscular Volume 87 fL (80-100); Mean Platelet Volume 11.2 fL (9.1-12.4); NEUTROPHILS ABSOLUTE AUTO 4.98 K/mm3 (1.96-9.15); NEUTROPHILS PERCENT AUTO 58 % (41-73); Platelet Count 225 K/mm3 (150-400); RDW Coefficient Variation 12.4 % (11.7-14.2); RDW Standard Deviation 39.2 fL (35.1-46.3); Red Blood Cell Count 4.47 M/mm3 (4.30-5.90); White Blood Cell Count 8.53 K/mm3 (4.00-11.30)
[2024-12-31 17:01] LABS: C-REACTIVE PROTEIN, EXT RANGE <0.290 mg/dL (0.000-0.300)
[2024-12-31 17:05] LABS: Alanine Aminotransfer (ALT/SGP 80 U/L (12-78); Albumin, Blood 4.2 g/dL (3.4-5.0); Albumin/Globulin Ratio 1.2 (0.8-1.8); Alk Phos 77 U/L (50-136); Anion Gap 14 mmol/L (3-11); Aspartate Aminotrans (AST/SGOT 28 U/L (12-37); Bilirubin, Total 0.6 mg/dL (0.1-1.0); Blood Urea Nitrogen 17 mg/dL (8-24); Bun/Creatinine Ratio 23.7 (12.0-20.0); CO2, Blood 26 mmol/L (21-32); Calcium, Blood 9.1 mg/dL (8.5-10.1); Chloride, Blood 102 mmol/L (98-108); Creatinine, Blood 0.72 mg/dL (0.60-1.20); Globulin, Blood 3.6 g/dL (2.2-4.0); Glomerular Filtration Rate 125 (60-); Glucose, Blood 70 mg/dL (70-99); Potassium, Blood 3.7 mmol/L (3.5-5.5); Sodium, Blood 138 mmol/L (136-145); Total Protein, Blood 7.8 g/dL (6.4-8.2)
[2025-01-01 13:04] LABS: HEPATITIS B SURFACE ANTIGEN Negative (Negative)
[2025-01-01 13:16] LABS: HEPATITIS B SURFACE ANTIBODY <3.10 IU/L
[2025-01-01 13:44] LABS: HBV CORE ANTIBODIES,TOTAL Negative (Negative)
[2025-01-01 16:25] LABS: HEPATITIS C AB CIA INTERP Negative (Negative); HEPATITIS C ANTIBODY CIA INDEX 0.07 IV
[2025-01-01 22:57] LABS: CYCLIC CITRULLINATED PEP,IGG/A 3 Units (0-19)
[2025-01-02 23:32] LABS: QUANTIFERON MITOGEN MINUS NIL 9.96 IU/mL; QUANTIFERON NIL 0.04 IU/mL; QUANTIFERON PLUS TB2 MINUS NIL 0.04 IU/mL (<=0.34)
== END 2024-12-31 18:05 | disposition home or self-care (01) ==
LOC: ATC 00:10
PROVIDERS: Internal Medicine; Internal Medicine Rheumatology
DX: M06.09 Rheumatoid arthritis without rheumatoid factor, multiple sites (principal); K51.80 Other ulcerative colitis without complications; E66.9 Obesity, unspecified; Z68.32 Body mass index [BMI] 32.0-32.9, adult; Z79.899 Other long term (current) drug therapy; Z87.891 Personal history of nicotine dependence
CPT/HCPCS: 80053; 85025; 86140; 86200; 86430; 86480; 86704; 86803; 87340; 96413; 96415; J7040; Q5103

== ENCOUNTER 2025-02-11 02:28 | Day surgery (SDC) | payer OTHER ==
[2025-02-11] MEDS ORDERED: NS IV SCH (15:25)
[2025-02-11] MEDS ORDERED: INFLIXIMAB DYYB IV SCH (15:25)
== END 2025-02-11 18:02 | disposition home or self-care (01) ==
LOC: ATC 02:28
DX: M06.09 Rheumatoid arthritis without rheumatoid factor, multiple sites (principal); Z87.891 Personal history of nicotine dependence; K51.80 Other ulcerative colitis without complications; E66.9 Obesity, unspecified; Z79.899 Other long term (current) drug therapy; Z68.32 Body mass index [BMI] 32.0-32.9, adult
CPT/HCPCS: 96413; 96415; J7040; Q5103

== ENCOUNTER 2025-03-25 00:25 | Day surgery (SDC) | payer OTHER ==
[~2025-03-25] VITALS: Wt 107.5 kg
[2025-03-25 15:15] VITALS: BP 124/70
[2025-03-25] MEDS ORDERED: NS IV SCH (15:30)
[2025-03-25] MEDS ORDERED: INFLIXIMAB DYYB IV SCH (15:30)
[2025-03-25 16:23] LABS: BASOPHILS ABSOLUTE AUTO 0.04 K/mm3 (0.00-0.23); BASOPHILS PERCENT AUTO 1 % (0-2); EOSINOPHILS ABSOLUTE AUTO 0.06 K/mm3 (0.00-0.68); EOSINOPHILS PERCENT AUTO 1 % (0-6); Hematocrit 39.3 % (37.0-53.0); Hemoglobin 14.6 g/dL (13.5-17.5); IMMATURE GRAN ABSOLUTE AUTO 0.02 K/mm3 (0.00-0.10); IMMATURE GRAN PERCENT AUTO 0 % (0-1); LYMPHOCYTES ABSOLUTE AUTO 2.37 K/mm3 (0.84-5.20); LYMPHOCYTES PERCENT AUTO 29 % (21-46); MONOCYTES ABSOLUTE AUTO 0.63 K/mm3 (0.16-1.47); MONOCYTES PERCENT AUTO 8 % (4-13); Mean Corpuscular HGB 32.4 pg (26.0-34.0); Mean Corpuscular HGB Conc 37.2 g/dL (31.5-36.5); Mean Corpuscular Volume 87 fL (80-100); Mean Platelet Volume 10.8 fL (9.1-12.4); NEUTROPHILS ABSOLUTE AUTO 4.93 K/mm3 (1.96-9.15); NEUTROPHILS PERCENT AUTO 61 % (41-73); Platelet Count 213 K/mm3 (150-400); RDW Coefficient Variation 12.3 % (11.7-14.2); RDW Standard Deviation 38.6 fL (35.1-46.3); Red Blood Cell Count 4.51 M/mm3 (4.30-5.90); White Blood Cell Count 8.05 K/mm3 (4.00-11.30)
[2025-03-25 17:59] LABS: Alanine Aminotransfer (ALT/SGP 54 U/L (12-78); Albumin, Blood 4.3 g/dL (3.4-5.0); Albumin/Globulin Ratio 1.2 (0.8-1.8); Alk Phos 84 U/L (50-136); Anion Gap 11 mmol/L (3-11); Aspartate Aminotrans (AST/SGOT 25 U/L (12-37); Bilirubin, Total 0.5 mg/dL (0.1-1.0); Blood Urea Nitrogen 20 mg/dL (8-24); Bun/Creatinine Ratio 19.4 (12.0-20.0); C-REACTIVE PROTEIN, EXT RANGE <0.290 mg/dL (0.000-0.300); CO2, Blood 27 mmol/L (21-32); Calcium, Blood 9.2 mg/dL (8.5-10.1); Chloride, Blood 103 mmol/L (98-108); Creatinine, Blood 1.03 mg/dL (0.60-1.20); Globulin, Blood 3.5 g/dL (2.2-4.0); Glomerular Filtration Rate 100 (60-); Glucose, Blood 73 mg/dL (70-99); Potassium, Blood 3.7 mmol/L (3.5-5.5); Sodium, Blood 137 mmol/L (136-145); Total Protein, Blood 7.8 g/dL (6.4-8.2)
== END 2025-03-25 18:17 | disposition home or self-care (01) ==
LOC: ATC 00:25
PROVIDERS: Internal Medicine Rheumatology
DX: M06.09 Rheumatoid arthritis without rheumatoid factor, multiple sites (principal); K51.80 Other ulcerative colitis without complications; E66.89 Other obesity not elsewhere classified; Z68.32 Body mass index [BMI] 32.0-32.9, adult; Z87.891 Personal history of nicotine dependence
CPT/HCPCS: 80053; 85025; 86140; 96413; 96415; J7040; Q5103

== ENCOUNTER 2025-05-07 02:30 | Day surgery (SDC) | payer OTHER ==
[2025-05-07] MEDS ORDERED: DiphenhydrAMINE HCl 50 MG/ML 1ML Vial IV SCH (06:55)
[2025-05-07 14:52] VITALS: BP 118/76
[2025-05-07] MEDS ORDERED: INFLIXIMAB DYYB IV SCH (15:05)
[2025-05-07] MEDS ORDERED: NS IV SCH (15:05)
== END 2025-05-07 18:06 | disposition home or self-care (01) ==
LOC: ATC 02:30
DX: M06.09 Rheumatoid arthritis without rheumatoid factor, multiple sites (principal); K51.80 Other ulcerative colitis without complications; E66.89 Other obesity not elsewhere classified; Z68.32 Body mass index [BMI] 32.0-32.9, adult; Z87.891 Personal history of nicotine dependence; Z79.899 Other long term (current) drug therapy
CPT/HCPCS: 96413; 96415; J7040; Q5103

== ENCOUNTER 2025-07-24 00:04 | Day surgery (SDC) | payer OTHER ==
[~2025-07-24] VITALS: Wt 105.5 kg
[2025-07-24 15:26] VITALS: BP 125/67
[2025-07-24] MEDS ORDERED: NS IV SCH (15:30)
[2025-07-24] MEDS ORDERED: INFLIXIMAB DYYB IV SCH (15:30)
[2025-07-24 16:06] LABS: BASOPHILS ABSOLUTE AUTO 0.05 K/mm3 (0.00-0.23); BASOPHILS PERCENT AUTO 1 % (0-2); EOSINOPHILS ABSOLUTE AUTO 0.10 K/mm3 (0.00-0.68); EOSINOPHILS PERCENT AUTO 1 % (0-6); Hematocrit 39.0 % (37.0-53.0); Hemoglobin 14.4 g/dL (13.5-17.5); IMMATURE GRAN ABSOLUTE AUTO 0.03 K/mm3 (0.00-0.10); IMMATURE GRAN PERCENT AUTO 0 % (0-1); LYMPHOCYTES ABSOLUTE AUTO 2.60 K/mm3 (0.84-5.20); LYMPHOCYTES PERCENT AUTO 32 % (21-46); MONOCYTES ABSOLUTE AUTO 0.63 K/mm3 (0.16-1.47); MONOCYTES PERCENT AUTO 8 % (4-13); Mean Corpuscular HGB Conc 36.9 g/dL (31.5-36.5); Mean Corpuscular Volume 87 fL (80-100); NEUTROPHILS ABSOLUTE AUTO 4.71 K/mm3 (1.96-9.15); NEUTROPHILS PERCENT AUTO 58 % (41-73); NRBC ABSOLUTE 0.00 K/mm3 (0.00-0.02); NRBC Auto 0.0 /100 WBC (0.0-0.2); Platelet Count 224 K/mm3 (150-400); RDW Coefficient Variation 12.2 % (11.7-14.2); RDW Standard Deviation 38.7 fL (35.1-46.3)
[2025-07-24 16:48] LABS: C-REACTIVE PROTEIN, EXT RANGE <0.290 mg/dL (0.000-0.300)
[2025-07-24 16:50] LABS: Alanine Aminotransfer (ALT/SGP 47 U/L (12-78); Albumin, Blood 4.4 g/dL (3.4-5.0); Albumin/Globulin Ratio 1.3 (0.8-1.8); Anion Gap 5 mmol/L (3-11); Aspartate Aminotrans (AST/SGOT 19 U/L (12-37); Bilirubin, Total 0.7 mg/dL (0.1-1.0); Blood Urea Nitrogen 13 mg/dL (8-24); CO2, Blood 29 mmol/L (21-32); Calcium, Blood 9.5 mg/dL (8.5-10.1); Chloride, Blood 105 mmol/L (98-108); Creatinine, Blood 0.84 mg/dL (0.60-1.20); Globulin, Blood 3.5 g/dL (2.2-4.0); Glucose, Blood 85 mg/dL (70-99); Potassium, Blood 3.4 mmol/L (3.5-5.5); Sodium, Blood 136 mmol/L (136-145); Total Protein, Blood 7.9 g/dL (6.4-8.2)
== END 2025-07-24 18:19 | disposition home or self-care (01) ==
LOC: ATC 00:04
PROVIDERS: Internal Medicine
DX: M06.09 Rheumatoid arthritis without rheumatoid factor, multiple sites (principal); K51.90 Ulcerative colitis, unspecified, without complications; Z79.2 Long term (current) use of antibiotics; Z88.6 Allergy status to analgesic agent
CPT/HCPCS: 80053; 85025; 86140; 96413; 96415; J7040; Q5103

== ENCOUNTER 2025-09-04 02:55 | Day surgery (SDC) | payer OTHER ==
[2025-09-04 14:48] VITALS: BP 119/71
[2025-09-04] MEDS ORDERED: Infliximab-DYYB 1,000 MG in NS 250 ML IV SCH (15:05)
== END 2025-09-04 17:38 | disposition home or self-care (01) ==
LOC: ATC 02:55
DX: M06.09 Rheumatoid arthritis without rheumatoid factor, multiple sites (principal); K51.90 Ulcerative colitis, unspecified, without complications; Z88.8 Allergy status to other drugs, medicaments and biological substances
CPT/HCPCS: 96413; 96415; J7050; Q5103

== ENCOUNTER 2025-10-21 00:18 | Day surgery (SDC) | payer OTHER ==
[2025-10-21 15:20] VITALS: BP 116/67
[2025-10-21] MEDS ORDERED: Infliximab-DYYB 1,000 MG in NS 250 ML IV SCH (15:20)
[2025-10-21 15:50] LABS: BASOPHILS ABSOLUTE AUTO 0.04 K/mm3 (0.00-0.23); BASOPHILS PERCENT AUTO 1 % (0-2); EOSINOPHILS ABSOLUTE AUTO 0.12 K/mm3 (0.00-0.68); EOSINOPHILS PERCENT AUTO 2 % (0-6); Hematocrit 37.1 % (37.0-53.0); Hemoglobin 13.3 g/dL (13.5-17.5); IMMATURE GRAN ABSOLUTE AUTO 0.01 K/mm3 (0.00-0.10); IMMATURE GRAN PERCENT AUTO 0 % (0-1); LYMPHOCYTES ABSOLUTE AUTO 2.58 K/mm3 (0.84-5.20); LYMPHOCYTES PERCENT AUTO 36 % (21-46); MONOCYTES ABSOLUTE AUTO 0.51 K/mm3 (0.16-1.47); MONOCYTES PERCENT AUTO 7 % (4-13); Mean Corpuscular HGB Conc 35.8 g/dL (31.5-36.5); Mean Corpuscular Volume 88 fL (80-100); NEUTROPHILS ABSOLUTE AUTO 3.89 K/mm3 (1.96-9.15); NEUTROPHILS PERCENT AUTO 54 % (41-73); NRBC ABSOLUTE 0.00 K/mm3 (0.00-0.02); NRBC Auto 0.0 /100 WBC (0.0-0.2); Platelet Count 217 K/mm3 (150-400); RDW Coefficient Variation 12.3 % (11.7-14.2); RDW Standard Deviation 39.5 fL (35.1-46.3)
[2025-10-21 16:14] LABS: C-REACTIVE PROTEIN, EXT RANGE <0.290 mg/dL (0.000-0.300)
[2025-10-21 16:35] LABS: Alanine Aminotransfer (ALT/SGP 41 U/L (12-78); Albumin, Blood 4.2 g/dL (3.4-5.0); Albumin/Globulin Ratio 1.3 (0.8-1.8); Anion Gap 5 mmol/L (3-11); Aspartate Aminotrans (AST/SGOT 19 U/L (12-37); Bilirubin, Total 0.4 mg/dL (0.1-1.0); Blood Urea Nitrogen 14 mg/dL (8-24); CO2, Blood 29 mmol/L (21-32); Calcium, Blood 8.9 mg/dL (8.5-10.1); Chloride, Blood 106 mmol/L (98-108); Creatinine, Blood 0.79 mg/dL (0.60-1.20); Globulin, Blood 3.2 g/dL (2.2-4.0); Glucose, Blood 89 mg/dL (70-99); Potassium, Blood 3.6 mmol/L (3.5-5.5); Sodium, Blood 136 mmol/L (136-145); Total Protein, Blood 7.4 g/dL (6.4-8.2)
== END 2025-10-21 17:50 | disposition home or self-care (01) ==
LOC: ATC 00:18
PROVIDERS: Internal Medicine
DX: M06.09 Rheumatoid arthritis without rheumatoid factor, multiple sites (principal); K51.90 Ulcerative colitis, unspecified, without complications; H20.9 Unspecified iridocyclitis; Z88.6 Allergy status to analgesic agent; Z79.899 Other long term (current) drug therapy
CPT/HCPCS: 36591; 80053; 85025; 86140; 96413; 96415; J7050; Q5103